=== PATIENT | female | born 1995 | race African-American/Black ===

== ENCOUNTER 2017-05-19 21:30 | Emergency (ER) | payer OTHER ==
[2017-05-19] MEDS: IBUPROFEN 800 MG TABLET. PO (21:54)
[2017-05-19] MEDS: ACETAMINOPHEN 325 MG TABLET. PO (21:54)
[2017-05-19] MEDS: CYCLOBENZAPRINE 10 MG TABLET. PO (22:30)
== END 2017-05-19 22:30 | disposition home or self-care (01) ==
LOC: ER 21:30
DX: S16.1XXA Strain of muscle, fascia and tendon at neck level, initial encounter (principal); V43.52XA Car driver injured in collision with other type car in traffic accident, initial encounter; Y93.I9 Activity, other involving external motion; Y92.410 Unspecified street and highway as the place of occurrence of the external cause; Y99.8 Other external cause status
CPT/HCPCS: 99282